=== PATIENT | male | born 1960 ===

== ENCOUNTER 2018-08-18 06:32 | Day surgery (SDC) | payer OTHER ==
[2018-08-18 06:40] VITALS: BMI 25.8
[2018-08-18 07:48] LABS: BASO % 0.7 % (0.0-2.0); EOS # 0.2 K/uL (0.0-0.7); EOS % 2.8 % (0.0-4.0); HEMOGLOBIN 15.7 g/dL (12.0-18.0); LYMPH # 1.9 K/uL (1.0-4.3); MEAN CELL VOLUME 86.9 fL (80.0-94.0); MEAN CORPUSCULAR HEMOGLOBIN 29.1 pg (27.0-31.0); MEAN CORPUSCULAR HGB CONC 33.5 g/dL (33.0-37.0); MONO # 0.8 K/uL (0.0-0.8); MONO % 11.4 % (0.0-10.0); NEUT # 4.1 K/uL (1.8-7.0); NEUT % 58.1 % (50.0-75.0); NRBC % 0.1 % (0.0-2.0); RBC 5.4 Mil/uL (4.40-5.90); RED CELL DISTRIBUTION WIDTH 13.4 % (11.5-14.5); WHITE BLOOD COUNT 7.1 K/uL (4.8-10.8)
--- NOTE | 2018-08-18 07:48 | C.PDOC ---
History Of Present Illness 58 y/o male with no PMHx presents to the ED for evaluation of foreign body, present for 3 days. Patient admits he stuck a metal perfume canister up the rectum on Wednesday 08/16. He has not been able to pass a bowel movement since then. Patient complains of worsening rectal pain. Denies any bleeding or other complaint. Time Seen by Provider: 08/18/18 07:13 Chief Complaint (Nursing): Foreign Body History Per: Patient History/Exam Limitations: no limitations Onset/Duration Of Symptoms: Days (x 3) Current Symptoms Are (Timing): Still Present Past Medical History Reviewed: Historical Data, Nursing Documentation, Vital Signs Vital Signs: Last Vital Signs Temp 98.9 F 08/18/18 06:43 Pulse 95 H 08/18/18 06:43 Resp 20 08/18/18 06:43 BP 171/98 H 08/18/18 06:43 Pulse Ox 98 08/18/18 06:43 - Medical History PMH: No Chronic Diseases Other Surgeries: Foot surgery Family History: States: No Known Family Hx - Social History Hx Alcohol Use: No Hx Substance Use: No - Immunization History Hx Tetanus Toxoid Vaccination: No Hx Influenza Vaccination: No Hx Pneumococcal Vaccination: No Review Of Systems Except As Marked, All Systems Reviewed And Found Negative. Constitutional: Negative for: Fever, Chills Cardiovascular: Negative for: Chest Pain Respiratory: Negative for: Shortness of Breath Gastrointestinal: Positive for: Constipation, Rectal Pain (and foreign body). Negative for: Nausea, Vomiting, Abdominal Pain, Other (rectal bleeding) Musculoskeletal: Negative for: Back Pain Skin: Negative for: Rash Neurological: Negative for: Weakness, Dizziness Physical Exam - Physical Exam Appears: Well, Non-toxic, No Acute Distress, Other (Thin, muscular male) Skin: Normal Color, Warm, Dry Head: Atraumatic, Normacephalic Eye(s): bilateral: Normal Inspection, PERRL, EOMI Oral Mucosa: Moist Neck: Normal ROM Chest: Symmetrical Cardiovascular: Rhythm Regular, No Murmur Respiratory: Normal Breath Sounds, No Accessory Muscle Use Gastrointestinal/Abdominal: Soft, No Tenderness, No Distention Rectal: Deferred Extremity: Bilateral: Atraumatic, Normal Color And Temperature Neurological/Psych: Oriented x3, Normal Speech Gait: Steady ED Course And Treatment - Laboratory Results Result Diagrams: 08/18/18 07:44 08/18/18 07:44 ECG: Interpreted By Me, Viewed By Me ECG Rhythm: Sinus Rhythm ECG Interpretation: No Acute Changes Interpretation Of ECG: No ST elevations or depressions Rate From EC O2 Sat by Pulse Oximetry: 98 (RA) Pulse Ox Interpretation: Normal - Other Rad abd x-ray, flat plate X-Ray: Read By Radiologist Interpretation: Accession No. : [id number]. Patient Name / ID : VIPIN LOZANO / [id number]. Exam Date : 08/18/2018 06:44:39 ( Approved ). Study Comment : Sex / Age : M / [id number]. Creator : Meseret Bond. Dictator : Meseret Bond. Brim Setter : Public Services Assistant : Meseret Bond. Approver2 : Report Date : 08/18/2018 08:43:44. My Comment : . Date of service: 08/18/2018. HISTORY: foreign body. COMPARISON: None available. TECHNIQUE: 1 view obtained. FINDINGS: BOWEL: No bowel obstruction seen. Moderate stool retention noted. 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 Bilateral hip arthrosis. No lytic lesions appreciated. OTHER FINDINGS: 14.3 by 2.4 cm tubular radiopaque foreign body projecting diagonally over the pelvis may be in the rectosigmoid colon-correlate clinically. IMPRESSION: Radiopaque foreign body projecting over pelvis-correlate clinically. No bowel dilatation seen to suggest bowel obstruction. Moderate stool retention. Medical Decision Making Medical Decision Making: Initial Impression: Foreign body to rectum Plan: - EKG - Blood work - Abdomen x-ray, flat plate - Chest x-ray - Surgical consult 7:25 Spoke with surgeon on-call Dr. Perdomo, who will take patient to the OR. Patient is to be kept NPO and admitted to same day surgery. As per Dr. Perdomo, called medical consult. Dr. Bruce Kitchen saw and evaluated patient in the ED. Disposition Discussed With Dr.: Stef Perdomo Doctor Will See Patient In The: ED Counseled Patient/Family Regarding: Studies Performed, Diagnosis - Disposition Disposition: HOSPITALIZED Disposition Time: 07:48 Condition: GUARDED - POA Present On Arrival: None - Clinical Impression Clinical Impression: Foreign body - Scribe Statement The provider has reviewed the documentation as recorded by the [facility] Page Provider Attestation: All medical record entries made by the Humaira were at my direction and personally dictated by me. I have reviewed the chart and agree that the record accurately reflects my personal performance of the history, physical exam, medical decision making, and the department course for this patient. I have also personally directed, reviewed, and agree with the discharge instructions and dis position. Decision To Admit - Pt Status Changed To: Hospital Disposition Of: Observation - . Bed Request Type: Same Day Surgery Admitting Physician: Stef Perdomo Patient Diagnosis: Foreign body
[2018-08-18 08:18] LABS: ALB/GLOB RATIO 1.3 (1.0-2.1); ALBUMIN 4.9 g/dL (3.5-5.0); ALT/SGPT 12 U/L (21-72); AST/SGOT 37 U/L (17-59); BLOOD UREA NITROGEN 15 mg/dL (9-20); CALCIUM 9.5 mg/dl (8.6-10.4); GFR NON-AFRICAN AMERICAN > 60
--- NOTE | 2018-08-18 08:47 | RAD ---
Date of service: 08/18/2018 HISTORY: foreign body COMPARISON: None available. TECHNIQUE: 1 view obtained. FINDINGS: BOWEL: No bowel obstruction seen. Moderate stool retention noted. 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 Bilateral hip arthrosis. No lytic lesions appreciated. OTHER FINDINGS: 14.3 by 2.4 cm tubular radiopaque foreign body projecting diagonally over the pelvis may be in the rectosigmoid colon-correlate clinically. IMPRESSION: Radiopaque foreign body projecting over pelvis-correlate clinically. No bowel dilatation seen to suggest bowel obstruction. Moderate stool retention. Comments: Study marked for PA review .
[2018-08-18 08:59] LABS: PROTHROMBIN TIME 11.1 SECONDS (9.7-12.2)
--- NOTE | 2018-08-18 09:59 | CP.PCM.CON ---
<TianaMiguel - Last Filed: 08/18/18 13:26> History of Present Illness - History of Present Illness History of Present Illness: PGY-1 Medicine Consult Note for Dr. Kitchen Reason for consult: medical clearance for surgery Patient is a 58 year old male with no significant past medical history presenting to ED with rectal pain and mild lower abdominal pain after lodging a small metallic cologne canister up his rectum on 08/16. Patient states he was out drinking the night prior and stuck the cologne up himself on Friday morning because "he was being stupid". He denies ever doing anything like this before, denies noting any bleeding or acute pain during the incident. He attempted to bear down to remove the canister but was unable to do so. He has not been able to have a BM since that time. No fevers/chills, headaches, dizziness, chest pain, palpitations, sob, cough, n/v/d, hematochezia, melena, dysuria. 12 pt ROS reviewed and otherwise negative. PMHx: denies PSHx: L achilles tendon repair--1950s; L hand laceration repair Allergies: NKDA Home Meds: none Family Hx: Father--prostate cancer; Mother--, unknown "stomach problem" Social Hx: hx of tobacco use (5 cigarettes/day x 15 years, quit 10 years ago), 3-4 beers/week, denies illicit drug use. Lives with friend, sexually active with female partners only. Works as a production line welder. PMD: None Proxy: None Advanced Directives: None Code Status: Full code Review of Systems - Review of Systems All systems: reviewed and no additional remarkable complaints except Review of Systems: as per HPI Past Patient History - Past Social History Smoking Status: Light Smoker < 10 Cigarettes Daily - PSYCHIATRIC Hx Substance Use: No - SURGICAL HISTORY Hx Surgeries: Yes Hx Orthopedic Surgery: Yes Other/Comment: foot sx - ANESTHESIA Hx Anesthesia: Yes Hx Anesthesia Reactions: No Meds Allergies/Adverse Reactions: Allergies Allergy/AdvReac Type Severity Reaction Status Date / Time No Known Allergies Allergy Verified 08/18/18 06:47 - Medications Medications: Current Medications Enalapril Maleate (Vasotec) 10 mg PO STAT STA Stop: 08/18/18 09:53 Physical Exam - Constitutional Appears: Non-toxic, No Acute Distress - Head Exam Head Exam: ATRAUMATIC, NORMAL INSPECTION, NORMOCEPHALIC - Eye Exam Eye Exam: EOMI, Normal appearance, PERRL Pupil Exam: NORMAL ACCOMODATION - ENT Exam ENT Exam: Mucous Membranes Moist, Normal Exam - Neck Exam Neck exam: Positive for: Full Rom, Normal Inspection. Negative for: Tenderness - Respiratory Exam Respiratory Exam: Clear to Auscultation Bilateral, NORMAL BREATHING PATTERN. absent: Accessory Muscle Use, Rales, Rhonchi, Wheezes, Respiratory Distress, St ridor - Cardiovascular Exam Cardiovascular Exam: REGULAR RHYTHM, +S1, +S2 - GI/Abdominal Exam GI & Abdominal Exam: Normal Bowel Sounds, Soft. absent: Distended, Firm, Guarding, Rebound, Rigid, Tenderness - Rectal Exam Additional comments: no external hemorrhoids, no skin tags, no lacerations or overt bleeding noted - Extremities Exam Extremities exam: Positive for: full ROM, normal capillary refill, normal inspection, pedal pulses present. Negative for: calf tenderness, pedal edema - Back Exam Back exam: NORMAL INSPECTION - Neurological Exam Neurological exam: Alert, CN II-XII Intact, Oriented x3 - Skin Skin Exam: Dry, Intact, Normal Color, Warm Results - Vital Signs Recent Vital Signs: Last Vital Signs Temp 98.9 F 08/18/18 06:43 Pulse 95 H 08/18/18 06:43 Resp 20 08/18/18 06:43 BP 171/98 H 08/18/18 06:43 Pulse Ox 98 08/18/18 09:36 - Labs Result Diagrams: 08/18/18 07:44 08/18/18 07:44 Labs: Laboratory Results - last 24 hr 08/18/18 08/18/18 08/18/18 07:44 07:44 08:44 WBC 7.1 RBC 5.40 Hgb 15.7 Hct 46.9 MCV 86.9 MCH 29.1 MCHC 33.5 RDW 13.4 Plt Count 259 MPV 8.0 Neut % (Auto) 58.1 Lymph % (Auto) 27.0 [place] % (Auto) 11.4 H Eos % (Auto) 2.8 Baso % (Auto) 0.7 Neut # (Auto) 4.1 Lymph # (Auto) 1.9 [place] # (Auto) 0.8 Eos # (Auto) 0.2 Baso # (Auto) 0.0 PT 11.1 INR 1.0 APTT 30 Sodium 137 Potassium 3.9 Chloride 100 Carbon Dioxide 29 Anion Gap 13 BUN 15 Creatinine 0.8 Est GFR ( Amer) > 60 Est GFR (Non-Af Amer) > 60 Random Glucose 113 H Calcium 9.5 Total Bilirubin 1.0 AST 37 ALT 12 L Alkaline Phosphatase 85 Total Protein 8.6 H Albumin 4.9 Globulin 3.7 Albumin/Globulin Ratio 1.3 Assessment & Plan - Assessment and Plan (Free Text) Assessment: 58 year old male with no pmhx being medically evaluated for surgical clearance after inserting metallic cologne canister up rectum 3 days ago. Plan: Foreign body in rectum -Abd XR: 14.3 x 2.4 cm tubular foreign body projecting diagonally over pelvis, may be in the rectosigmoid colon. No bowel obstruction noted. -CXR: no acute findings -EKG: NSR -NPO -patient scheduled for OR later today HTN -BP 171/98 on admissions, repeat 158/92 -begin Lisinopril 10 mg PO daily PPx, Diet, Disposition -DVT ppx: scds -GI ppx: not indicated -Diet: NPO Dispo: Patient is medically optimized and cleared from Medicine perspective for OR. Patient to be started on Lisinopril 10 mg PO daily for control of HTN. Script has been provided in chart to be given to patient upon discharge. Please follow up at [facility] upon discharge for repeat BP measurement in 2 weeks. We will be signing off the case. Please reconsult, as needed. Thank you! <Bruce Kitchen - Last Filed: 08/18/18 18:22> Results - Vital Signs Recent Vital Signs: Last Vital Signs Temp 97.6 F 08/18/18 16:07 Pulse 83 08/18/18 16:07 Resp 18 08/18/18 16:07 BP 140/89 08/18/18 16:07 Pulse Ox 99 08/18/18 16:07 - Labs Result Diagrams: 08/18/18 07:44 08/18/18 07:44 Labs: Laboratory Results - last 24 hr 08/18/18 08/18/18 08/18/18 07:44 07:44 08:44 WBC 7.1 RBC 5.40 Hgb 15.7 Hct 46.9 MCV 86.9 MCH 29.1 MCHC 33.5 RDW 13.4 Plt Count 259 MPV 8.0 Neut % (Auto) 58.1 Lymph % (Auto) 27.0 [place] % (Auto) 11.4 H Eos % (Auto) 2.8 Baso % (Auto) 0.7 Neut # (Auto) 4.1 Lymph # (Auto) 1.9 [place] # (Auto) 0.8 Eos # (Auto) 0.2 Baso # (Auto) 0.0 PT 11.1 INR 1.0 APTT 30 Sodium 137 Potassium 3.9 Chloride 100 Carbon Dioxide 29 Anion Gap 13 BUN 15 Creatinine 0.8 Est GFR ( Amer) > 60 Est GFR (Non-Af Amer) > 60 Random Glucose 113 H Calcium 9.5 Total Bilirubin 1.0 AST 37 ALT 12 L Alkaline Phosphatase 85 Total Protein 8.6 H Albumin 4.9 Globulin 3.7 Albumin/Globulin Ratio 1.3 Attending/Attestation - Attestation I have personally seen and examined this patient.: Yes I have fully participated in the care of the patient.: Yes I have reviewed all pertinent clinical information: Yes Notes (Text): 08/18/18 18:19 Patient was seen and examined at 8:00 AM in ER Bed 7 History, Physical, Assessment and Plan were gone over in detail with resident Dr. Montiel. Bruce Kitchen D.O.
--- NOTE | 2018-08-18 10:01 | RAD ---
Date of service: 08/18/2018 HISTORY: Abdominal pain COMPARISON: None available. TECHNIQUE: 1 view obtained. FINDINGS: LUNGS: No focal infiltrate or effusion. Biapical pleural thickening. PLEURA: No significant pleural effusion identified, no pneumothorax apparent. CARDIOVASCULAR: No aortic atherosclerotic calcification present. Normal cardiac size. No pulmonary vascular congestion. OSSEOUS STRUCTURES: No significant abnormalities. VISUALIZED UPPER ABDOMEN: Normal. OTHER FINDINGS: None. IMPRESSION: No active disease.
[2018-08-18] MEDS ORDERED: Propofol 10 mg/ml Inj (20 ML) ONE (14:08)
[2018-08-18] MEDS ORDERED: Midazolam 2 MG/2 ML VIAL ONE (14:08)
[2018-08-18] MEDS ORDERED: Succinylcholine Chloride 20 mg/ml Syr (5 ml) IV ONE (14:09)
[2018-08-18] MEDS ORDERED: Lidocaine Hydrochloride 5 ML INJ ONE (14:09)
[2018-08-18] MEDS ORDERED: ceFAZolin 1 gm in NS 1 GM/100 ML BAG IVPB ONE (14:29)
[2018-08-18] MEDS ORDERED: Bupivacaine 0.25% 20 ML INJ IJ ONE (14:29)
[2018-08-18] MEDS ORDERED: Lactated Ringer's 1,000 ML IV ONE (15:03)
[2018-08-18] MEDS ORDERED: Oxycodone/Acetaminophen 5/325 mg Tab PO PRN (15:04)
[2018-08-18] MEDS ORDERED: HYDROmorphone 0.5 mg/0.5 ml ISec IVP PRN (15:22)
[2018-08-18] MEDS ORDERED: Lactated Ringer's 1,000 ML IV SCH (15:30)
[2018-08-18 15:58] VITALS: RESP 18; TEMP 97.6
[2018-08-18 16:20] VITALS: BP 140/89; PULSE 83; O2SAT 99
--- NOTE | 2018-08-19 01:31 | OP ---
PROCEDURE DATE: 08/18/2018 PREOPERATIVE DIAGNOSIS: Foreign body in the rectum. POSTOPERATIVE DIAGNOSIS: Foreign body in the rectum. PROCEDURE PERFORMED: Transanal retraction, foreign body in the rectum under general anesthesia. SURGEON: Stef Perdomo MD TYPE OF ANESTHESIA: General. ESTIMATED BLOOD LOSS: 10 mL POSTOPERATIVE CONDITION: Stable. INDICATION FOR SURGERY: This is a 58-year-old male who two days ago placed a perfume bottle in his rectum and since that time has an increased amount of abdominal pain and discomfort. He was seen in the emergency room today, transferred to the operating room for retraction of his rectal foreign body. DESCRIPTION OF PROCEDURE: The patient was taken to the operating room. General anesthesia was administered. He was placed in a lithotomy position. A rectal exam under anesthesia was performed and the bottom of the tubular shape bottle was grasped and pulled out of the rectum after it was carefully brought down from proximal rectum. There was some blood associated with the retraction but no overt bleeding. The patient tolerated the procedure well and returned to recovery room in stable condition. Stef Perdomo MD
== END 2018-08-18 16:18 | disposition home or self-care (01) ==
LOC: C.SDS 06:32 → C.ER 06:32 → C.SDS 08:01
PROVIDERS: ATTEND Surgery
DX: T18.5XXA Foreign body in anus and rectum, initial encounter (principal)
CPT/HCPCS: 36415; 45915; 71045; 74018; 80053; 85025; 85610; 85730; 88300; J0690; J2250; J2704; J3010; J7120